=== PATIENT | male | born 1975 | race African-American/Black ===

== ENCOUNTER 2020-11-18 17:16 | Emergency (ER) | payer MEDICAID ==
[~2020-11-18] VITALS: Ht 185.4 cm; Wt 82.0 kg
[2020-11-18 17:50] VITALS: BP 136/94
== END 2020-11-18 18:29 | disposition left against medical advice (07) ==
LOC: ER 17:16
DX: R07.89 Other chest pain (principal); M25.571 Pain in right ankle and joints of right foot; M25.511 Pain in right shoulder
CPT/HCPCS: 93005; 99283